=== PATIENT | female | born 1990 | race Caucasian/White ===

== ENCOUNTER 2017-04-21 08:50 | Emergency (ER) | payer BC ==
[~2017-04-21] VITALS: Ht 167.6 cm; Wt 49.9 kg
--- NOTE | 2017-04-21 09:05 | Emergency Room Report ---
History of Present Illness General Chief Complaint: Pain Source: Patient Present Illness HPI Patient is a 26-year-old female presented after having increased pain to her left foot. The patient reports having injury while walking downstairs. Patient reports having hyperextended ankle. She reports having prior fractures on the right foot. She denies locations of other pain. She denies past medical history. Patient History Last Menstrual Period: 2 weeks ago Now: No Reviewed Nursing Documentation: PMH: Agreed, PSxH: Agreed Nursing Documentation-PMH Past Medical History: No Stated History Review of Systems All Other Systems: negative except mentioned in HPI Physical Exam Vital Signs Date Time Temp Pulse Resp B/P (MAP) Pulse Ox O2 Delivery O2 Flow Rate FiO2 04/21/17 08:53 97.7 69 14 101/68 100 General Appearance: well appearing, no apparent distress, alert, GCS 15 Head: normocephalic, atraumatic ENT: hearing grossly normal, normal voice Neck: full range of motion, supple Respiratory: no respiratory distress, speaking full sentences Gastrointestinal: normal bowel sounds, soft, no mass Musculoskeletal: no calf tenderness Neurologic: normal inspection, alert, oriented x3, responsive, call center assistant III-XII nml as tested, normal gait Psychiatric: mood/affect normal Skin: no rash, other - bruising to left foot Medical Decision Making Diagnostic Impression: Primary Impression: Sprain of foot, left ER Course Patient presented for foot pain. Differential diagnoses include was was not limited to cellulitis, foreign body, fracture, plantar fasciitis, vascular insufficiency, sprain. Because of complexity of patient's case imaging studies were ordered.The x-ray imaging read by radiologist showed no evident fracture. Patient was advised to injury recheck and that he may require further imaging if pain persists including possible MRI. This report is dictated with [employer] clean room technician software which may occasionally lead to discrepancies related to use of this software. Other X-Ray Diagnostic Results Other X-Ray Diagnostic Results : # of Views/Limited Vs Complete: 3 View Indication: Pain EP Interpretation: No Interpretation: no dislocation, no soft tissue swelling, no fractures Impression: No acute disease Electronically Signed by: Electronically signed by Dr. Santos Underwood M.D. Last Vital Signs Date Time Temp Pulse Resp B/P (MAP) Pulse Ox O2 Delivery O2 Flow Rate FiO2 04/21/17 08:53 97.7 69 14 101/68 100 Status: improved Disposition: HOME, SELF-CARE Condition: Stable Scripts Ibuprofen (Ibuprofen) 400 Mg Tablet 400 MG PO Q8HR, #30 TAB Prov: Santos Underwood 04/21/17 Santos Underwood Apr 21, 2017 09:05
[2017-04-21] MEDS ORDERED: IBUPROFEN400 M1 PO (09:30)
[2017-04-21 09:45] VITALS: BP 108/72
--- NOTE | 2017-04-21 16:11 | Diagnostic Imaging Report ---
Indication: PAIN Technique: 3 views left foot Comparison: none Findings: There is mild metatarsus adductus. No acute fractures. No dislocations. The joint spaces are preserved. Impression: Negative
== END 2017-04-21 09:45 | disposition home or self-care (01) ==
LOC: EMR 09:04
DX: S93.602A Unspecified sprain of left foot, initial encounter (principal); Y93.01 Activity, walking, marching and hiking; Y92.89 Other specified places as the place of occurrence of the external cause
CPT/HCPCS: 99283